=== PATIENT | male | born 1965 | race Caucasian/White ===

== ENCOUNTER → 2018-03-25 18:20 | Outpatient (CLI) | payer OTHER, SELFPAY ==
--- NOTE | 2018-03-25 18:22 | DI.MRI.S_ITS ---
PROCEDURE: MR LUMBAR SPINE WO CON INDICATIONS: LOW BACK PAIN TECHNIQUE: Noncontrast sagittal T1 spin echo and T2 fast echo, sagittal STIR, axial T1 and T2 fast spin echo through the lumbar spine. In cases with scoliosis, additional coronal T2 fast spin echo may be performed. COMPARISON: None. FINDINGS: Image quality: Excellent. Alignment and Curvature: There is normal bony alignment. Bone Marrow: Reactive endplate changes noted adjacent to the L1-L2, L4-L5 and L5-S1 discs. No acute vertebral body compression fractures. Spinal Cord: Conus medullaris terminates at the L2 level. Visualized cord demonstrates normal signal and size. Paraspinous Soft Tissues: No paravertebral masses. L1-L2: Loss of disc signal and height. Mild, diffuse disc bulge. Mild bilateral facet hypertrophy. Mild narrowing of the central canal. Moderate right and mild left neural foraminal narrowing. No neural impingement. L2-L3: Loss of disc signal. Minimal, diffuse disc bulge and mild bilateral facet hypertrophy. Mild narrowing of the central canal. Moderate right and mild left neural foraminal narrowing. No neural impingement. L3-L4: Loss of disc signal. Mild, diffuse disc bulge. Mild bilateral facet hypertrophy. Moderate ligamentum flavum hypertrophy. Moderate narrowing of the central canal. Moderate bilateral neural foraminal narrowing. No neural impingement. L4-L5: Loss of disc signal and height. Mild, diffuse disc bulge. Small central disc protrusion. Mild bilateral facet hypertrophy. Mild narrowing of the central canal. Moderate to severe right and severe left neural foraminal narrowing with slight flattening deformity exiting left L4 nerve root. L5-S1: Loss of disc signal and height. Mild diffuse disc bulge. Mild bilateral facet hypertrophy. No central stenosis. Severe right and [id number] left neural foraminal narrowing with marked flattening deformity exiting right L5 nerve root and slight flattening deformity exiting left L5 nerve root. IMPRESSION: 1. Multilevel degenerative disc disease. 2. Multilevel facet arthropathy. 3. Moderate L3-L4 central canal narrowing. Mild L1-L2, L2-L3 and L4-L5 central canal narrowing. 4. Severe right and moderate to severe left L5-S1 neural foraminal narrowing. Moderate to severe right and severe left L4-L5 neural foraminal narrowing. Moderate bilateral L3-L4 neural foraminal narrowing. Moderate right and mild left L1-L2 and L2-L3 neural foraminal narrowing. 5. Flattened deformity of the exiting left L4 nerve root and the exiting bilateral L5 nerve roots secondary to neural foraminal narrowing. Please correlate with clinical data. Dictated by: Corrie Martinez MD, PhD on 03/25/2018 at 21:59 Approved by: Corrie Martinez MD, PhD on 03/25/2018 at 22:04
== END ==
PROVIDERS: Visit Provider Physical Medicine & Rehabilitation
DX: M54.5 Low back pain (principal); M51.36 Other intervertebral disc degeneration, lumbar region; M51.37 Other intervertebral disc degeneration, lumbosacral region; M48.061 Spinal stenosis, lumbar region without neurogenic claudication; M48.07 Spinal stenosis, lumbosacral region
CPT/HCPCS: 72148

== ENCOUNTER → 2018-04-09 13:35 | Outpatient (CLI) | payer OTHER, SELFPAY ==
--- NOTE | 2018-04-09 13:37 | DI.MRI.S_ITS ---
PROCEDURE: MR KNEE RT WO CON INDICATIONS: Pain. TECHNIQUE: Noncontrast sagittal PD fast spin echo and T2 fast spin echo with fat saturation, sagittal 3-D FLASH with fat saturation; coronal T1 spin echo and PD fast spin echo with fat saturation, and axial PD fast spin echo with fat saturation through the knee. COMPARISON: [facility], CR, XR KNEE ARTHRITIC SERIES RT, 03/24/2018, 10:59. [facility], MR, KNEE WITHOUT CONTRAST, 12/24/2016, 12:57. FINDINGS: Image quality: Excellent. Menisci: The me lateral meniscus demonstrates normal morphology and internal signal whereas the medial meniscus at its posterior horn contains a horizontally oriented linear tear best seen on coronal imaging, for example series 16 image 25. The transverse dimension of the medial meniscus appears truncated, seen on series 16 image 22, seen on series 16 image 24 and traversing posteriorly and anteriorly within the intracondylar notch beneath the posterior cruciate ligament.. The meniscal root ligaments appear intact. Cruciate ligaments: The anterior and posterior cruciate ligaments appear intact. Medial structures: The medial collateral ligament appears intact. The posterior oblique ligament, semimembranosus tendon insertions, oblique popliteal ligament, and meniscocapsular junction appear intact. Visualized portions of the pes anserinus tendons appear normal. No abnormal bursal fluid. Lateral structures: The lateral collateral ligament, long and short heads of the biceps femoris tendon appear intact. The popliteus tendon appears normal; the popliteofibular ligament appears intact. The posterosuperior and anteroinferior popliteomeniscal fascicles appear intact. The arcuate and fabellofibular ligaments appear intact, on either side of the lateral inferior geniculate artery. Iliotibial band appears normal. Anterior structures: The quadriceps and patellar tendons appear intact. Patellar alignment is normal. No femoral trochlear dysplasia or ventral trochlear prominence. No edema in the infrapatellar fat pad. Bones and cartilage: No bone marrow contusions or fractures. The cartilage of the medial and lateral femorotibial compartments, as well as the patellofemoral compartment, appears normal in thickness. Joint space: There is a moderate excess of knee joint fluid. There is a posterior medial, Sheppard's cyst measuring up to 2.5 x 3.5 cm. Normal appearing synovial plicae are incidentally noted. IMPRESSION: Horizontally oriented linear tear involves the posterior horn of the medial meniscus and lower anteriorly the mid body of the meniscus is truncated to a short transverse dimension with associated apparent bucket handle tear displacement of the remainder of the mid body of the medial meniscus into the intercondylar notch. Dictated by: Amari Rodriguez M.D. on 04/11/2018 at 12:55 Approved by: Amari Rodriguez M.D. on 04/11/2018 at 13:05
== END ==
PROVIDERS: Visit Provider Physical Medicine & Rehabilitation
DX: M25.561 Pain in right knee (principal); S83.241A Other tear of medial meniscus, current injury, right knee, initial encounter; M71.21 Synovial cyst of popliteal space [Baker], right knee
CPT/HCPCS: 73721

== ENCOUNTER → 2018-08-29 15:12 | Outpatient (CLI) | payer OTHER, MEDICAID, SELFPAY ==
--- NOTE | 2018-08-29 | DI.MRI.S_ITS ---
PROCEDURE: MR HIP LT WO CON INDICATIONS: unilateral primary osteoarthritis of left hip. LEFT HIP PAIN TECHNIQUE: Noncontrast coronal T1 spin echo and STIR through the bony pelvis. Coronal and axial T2 fast spin echo with fat saturation, sagittal T1 spin echo, and oblique axial T2 fast spin echo with fat saturation through the hip. COMPARISON: [facility], CR, XR PELVIS WITH LATERAL HIP LEFT, 04/05/2018, 11:15. FINDINGS: Image quality: Excellent. Bones and joints: No definite fracture identified. There is moderate to severe left and right hip joint degeneration. Prominent subchondral marrow edema is seen in the left femoral head, which raises the possibility of early avascular necrosis. There is early articular surface collapse. Lower lumbar spondylosis. Present degenerative subchondral cyst seen in the right acetabular roof Tendons and ligaments: The gluteus medius and minimus tendons appear intact, without associated muscle atrophy. The nearby proximal iliotibial band also appears intact. The iliopsoas tendon appears intact, without adjacent bursal fluid collections or evidence for impingement syndrome. The origin of the hamstring tendon is intact at the ischial tuberosity, as well as the associated sacrotuberous ligament. The straight and reflected heads of the rectus femoris muscle origin appear intact, as well as the conjoint tendon. The ligamentum teres appears intact where visualized. Labrum and cartilage: The acetabular labrum appears intact in the absence of intra-articular contrast. Cartilage surface of the femoral head appears of normal thickness. The alpha angle of the femur is within normal limits at less than 55 degrees. Soft tissues: Visualized muscles demonstrate normal bulk and internal signal. Quadratus femoris muscle demonstrates no internal edema to suggest ischiofemoral impingement. The proximal sciatic neurovascular bundle appears normal adjacent to the hamstring tendons. No free pelvic fluid. Bladder wall thickness is normal. Genitourinary structures and bowel loops appear normal where visualized. IMPRESSION: Prominent subchondral signal changes seen within the left femoral head suspicious for early avascular necrosis versus reactive changes from severe hip joint degeneration. There is early articular surface collapse. Please correlate clinically and consider continued surveillance with shorter interval serial hip radiographs. Background moderate to severe hip joint degeneration. Dictated by: Gurvinder Desai M.D. on 08/29/2018 at 16:57 Approved by: Gurvinder Desai M.D. on 08/29/2018 at 17:03
== END ==
PROVIDERS: Visit Provider Physical Medicine & Rehabilitation
DX: M16.0 Bilateral primary osteoarthritis of hip (principal); M47.816 Spondylosis without myelopathy or radiculopathy, lumbar region
CPT/HCPCS: 73721

== ENCOUNTER → 2021-09-22 15:33 | Outpatient (CLI) | payer OTHER, MEDICAID, SELFPAY ==
--- NOTE | 2021-09-22 15:40 | DI.MRI.S_ITS ---
PROCEDURE: MR LUMBAR SPINE WO CON INDICATIONS: LUMBAR RADICULOPATHY TECHNIQUE: Noncontrast sagittal T1 spin echo and T2 fast echo, sagittal STIR, and T2 fast spin echo through the lumbar spine. In cases with scoliosis, additional coronal T2 fast spin echo may be performed. COMPARISON: None. FINDINGS: Image quality: Excellent. Alignment and Curvature: There is normal bony alignment. Bone Marrow: Modic type 1 reactive endplate changes noted adjacent to the L5-S1 disc. Modic type 2 reactive endplate changes noted adjacent the L4-L5 disc. No acute vertebral body compression fractures. Spinal Cord: Conus medullaris terminates at the L2 level. Visualized cord demonstrates normal signal and size. Paraspinous Soft Tissues: No paravertebral masses. T12-L1: Normal appearance. L1-L2: Loss of disc signal and height. Mild, diffuse disc bulge. Mild bilateral facet hypertrophy. Mild narrowing of the central canal. Mild bilateral neural foraminal narrowing. No neural compression. L2-L3: Slight loss of disc signal. Mild bilateral facet hypertrophy. Mild narrowing of the central canal. Mild bilateral neural foraminal narrowing. No neural compression. L3-L4: Loss of disc signal. Moderate, diffuse disc bulge. Mild bilateral facet hypertrophy. Mild to moderate narrowing of the central canal. Mild to moderate bilateral neural foraminal narrowing. No neural compression. L4-L5: Loss of disc signal and height. Mild, diffuse disc bulge. Mild right moderate left facet hypertrophy. Mild narrowing of the central canal. Moderate bilateral neural foraminal narrowing. No neural compression. L5-S1: Loss of disc signal and height. Mild, diffuse disc bulge. Mild bilateral facet hypertrophy. No central stenosis. Severe right and moderate left neural foraminal narrowing with compression of the exiting right L5 nerve root. IMPRESSION: 1. Multilevel degenerative disc disease. 2. Multilevel facet arthropathy. 3. No severe central canal narrowing. 4. Severe right L5-S1 neural foraminal narrowing with compression of the exiting right L5 nerve root. Dictated by: Corrie Martinez MD, PhD on 09/22/2021 at 17:15 Approved by: Corrie Martinez MD, PhD on 09/22/2021 at 17:18
--- NOTE | 2021-09-22 15:40 | DI.MRI.S_ITS ---
PROCEDURE: MR ELBOW RT WO CON INDICATIONS: RIGHT ELBOW STRAIN TECHNIQUE: Noncontrast coronal proton density fast spin echo and T2 fast spin echo with fat saturation, axial and sagittal T1 spin echo and T2 fast spin echo with fat saturation through the elbow. COMPARISON: None. FINDINGS: Image quality: Excellent. Lateral structures: The lateral ulnar collateral ligament and radial collateral ligament both appear intact. The overlying common extensor tendon demonstrates tendinopathy with small partial tear. Medial structures: The ulnar collateral ligament appears intact. The overlying common flexor tendon appears normal. The ulnar nerve appears normal in size and signal within the cubital tunnel. Anterior structures: The biceps and brachialis tendons both appear intact as they insert onto the proximal radius and ulna, respectively. No bicipitoradial bursal fluid. The median and radial neurovascular bundles appear normal; no focal muscle atrophy to suggest nerve impingement. Posterior structures: The conjoint triceps tendon from the long and lateral heads appears intact. Intrasubstance T2 hyperintense signal is seen, compatible with tendinopathy. The medial head of the triceps tendon also appears normal, with direct muscle insertion onto the olecranon. No olecranon bursal fluid. Bone and cartilage: No evidence of fracture. Small joint effusion Osteochondral injury of the capitellum, measuring 1 x 0.6 cm. A small area of subchondral edema is seen in the trochlea. IMPRESSION: 1. Osteochondral injury of the capitellum. 2. Small area subchondral edema in the trochlea. 3. Tendinopathy with partial tear of the common extensor tendon. 4. Olecranon tendinopathy. Dictated by: Jorge Thurston M.D. on 09/22/2021 at 19:23 Approved by: Jorge Thurston M.D. on 09/22/2021 at 19:31
== END ==
PROVIDERS: Referring Provider Orthopaedic Surgery; Visit Provider Orthopaedic Surgery
DX: M51.16 Intervertebral disc disorders with radiculopathy, lumbar region; M51.17 Intervertebral disc disorders with radiculopathy, lumbosacral region; M47.26 Other spondylosis with radiculopathy, lumbar region; M47.27 Other spondylosis with radiculopathy, lumbosacral region; M48.07 Spinal stenosis, lumbosacral region; S46.811A Strain of other muscles, fascia and tendons at shoulder and upper arm level, right arm, initial encounter; S59.801A Other specified injuries of right elbow, initial encounter; X58.XXXA Exposure to other specified factors, initial encounter
CPT/HCPCS: 72148; 73221